=== PATIENT | male | born 1950 | race Caucasian/White ===

== ENCOUNTER → 2017-03-04 | Outpatient (CLI) | payer MEDICARE, OTHER | END | disposition home or self-care (01) | LOC: GMAM 14:51 | PROVIDERS: ATTEND Family Medicine | DX: R94.5 Abnormal results of liver function studies (principal) ==

== ENCOUNTER → 2018-06-22 | Outpatient (CLI) | payer MEDICARE, OTHER | LOC: GMAM 12:01 | PROVIDERS: ATTEND Family Medicine | DX: Z12.5 Encounter for screening for malignant neoplasm of prostate (principal) ==

== ENCOUNTER → 2020-07-30 | Outpatient (CLI) | payer MEDICARE, OTHER | LOC: GMAM 11:37 | PROVIDERS: ATTEND Family Medicine | DX: D51.9 Vitamin B12 deficiency anemia, unspecified (principal); E55.9 Vitamin D deficiency, unspecified; Z12.5 Encounter for screening for malignant neoplasm of prostate; I10 Essential (primary) hypertension; R73.9 Hyperglycemia, unspecified; E78.2 Mixed hyperlipidemia; E29.9 Testicular dysfunction, unspecified | CPT/HCPCS: 82306; 82607; 84403; G0103 ==

== ENCOUNTER → 2020-08-09 | Outpatient (CLI) | payer MEDICARE, OTHER ==
--- NOTE | 2020-08-12 06:13 | MRI ---
Study: MRI of the Right Knee. Indication: KNEE PAIN Technique: Multiplanar, multi sequence MRI of the right knee was obtained without intravenous contrast. Comparison: None. ] Findings: Remote full-thickness ACL tear. Degeneration and buckling PCL. Anterior translation tibia. Both the MCL and FCL are slightly thickened and lax with mild increased internal PD signal. In addition, there is mild thickening of the distal IT band. These findings can be seen in the setting of the osteoarthritic knee. No acute tear defect of the medial or lateral collateral structures. Maceration and severe attenuation posterior horn/root and body medial meniscus with body extruded by 4 mm. Severe medial compartment osteoarthritis with complete grade 4 chondral loss and cortical remodeling. Irregular tearing and significant attenuation posterior horn and body lateral meniscus.Grade 3/4 chondral loss central and posterior margins of the tibial plateau. Subtle grade 3-4 chondrosis posterior most margin lateral femoral condyle. Patellofemoral extensor mechanism intact. Grade 4 chondrosis medial most margin medial patellar facet. Heterogeneous grade 3-4 chondral loss medial and midline femoral trochlea. Moderate size knee effusion with scattered synovitis/debris. No acute fracture. Impression: Remote full-thickness ACL tear. Maceration and attenuation medial meniscus and lateral meniscus. 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 Moderate-sized knee effusion. Additional findings as above. Electronically signed by: Jaime Albright MD 08/12/2020 6:11 AM [employer]
== END ==
LOC: MRI 08:45
PROVIDERS: ATTEND Family Medicine
DX: S83.511A Sprain of anterior cruciate ligament of right knee, initial encounter (principal); M23.303 Other meniscus derangements, unspecified medial meniscus, right knee; M23.300 Other meniscus derangements, unspecified lateral meniscus, right knee; M17.11 Unilateral primary osteoarthritis, right knee; M25.461 Effusion, right knee